=== PATIENT | male | born 1990 | race African-American/Black ===

== ENCOUNTER 2021-04-12 18:45 | Emergency (ER) | payer OTHER, SELFPAY ==
--- NOTE | ~2021-04-12 | CT_ITS ---
EXAMINATION: CT abdomen pelvis w con EXAM DATE: 04/12/2021 23:29 INDICATION: Right lower quadrant abdominal pain. TECHNIQUE: Spiral CT of the abdomen and pelvis was performed following intravenous injection of 100 m L Omnipaque 350. Axial, coronal and sagittal images of the abdomen and pelvis were reviewed. The do se-length product (DLP) for this examination was 777.28 mGy-cm. The exposure was tailored according to patient size (auto mA exposure control), and iterative reconstruction (ASIR) was used as additiona l dose reduction technique. There is no prior study for comparison. FINDINGS: The liver, spleen, adrenal glands and pancreas are unremarkable. Gallbladder is unremarkab le. No biliary obstruction. Portal and splenic veins are patent. Kidneys enhance symmetrically. T here is no hydronephrosis. The prostate is unremarkable. The bladder is unremarkable. There is no retroperitoneal or pelvic lymphadenopathy. The appendix is normal. The stomach and small bowel are unremarkable. There is expected amount of c olonic stool. No free intraperitoneal gas. The heart is normal in size. There are no pericardial or pleural effusions. The lung bases are unremarkable. There are no osteoblastic or osteolytic les ions identified. IMPRESSION: No acute intra-abdominal findings. Reviewed, dictated and finalized at location A. [employer]
[2021-04-12 18:51] VITALS: BP 133/79; PULSE 77; RESP 16; TEMP 36.1; O2SAT 99
[2021-04-12] MEDS: ONDANSETRON INJ 4 MG/2 ML VIAL IV PUSH (21:55)
[2021-04-12] MEDS: SODIUM CHLORIDE 0.9% IV 1,000 ML 999 ML IV CONT (21:55)
[2021-04-12 22:00] LABS: Basophils Absolute Auto 0.1 K/mm3 (0.0-0.1); Basophils Percent Auto 0.5 % (0.2-1.2); Eosinophils Absolute Auto 0.1 K/mm3 (0-0.3); Eosinophils Percent Auto 1.5 % (0-4.4); Hematocrit 42.6 % (42.0-52.0); Hemoglobin 14.3 g/dL (14.0-18.0); Immature Granulocyte Absolute 0.02 K/mm3 (0.00-0.031); Immature Granulocyte Percent A 0.2 % (0-0.5); Lymphocytes Absolute Auto 3.22 K/mm3 (0.9-3.2); Lymphocytes Percent Auto 34.3 % (18.3-44.2); Mean Corpuscular HGB Conc 33.6 g/dl (32-36); Mean Corpuscular Hemoglobin 28.5 pg (26-34); Mean Platelet Volume 10.3 fl (7.4-10.4); Monocytes Absolute Auto 0.7 K/mm3 (0.1-0.6); Monocytes Percent Auto 7.4 % (2.6-8.5); Neutrophils Absolute Auto 5.3 K/mm3 (1.3-6.7); Neutrophils Percent Auto 56.1 % (45.5-73.1); Platelet Count Result 252 k/mm3 (150-375); Red Blood Count 5.01 M/mm3 (4.6-6.20); White Blood Count 9.4 K/mm3 (4.5-10.0)
--- NOTE | 2021-04-12 22:05 | ED.WEAKNESS ---
HPI - Weakness General Chief complaint: Weakness Stated complaint: Stomach bothering, feeling weak Time Seen by Provider: 04/12/21 21:14 Source: patient and RN notes reviewed Mode of arrival: ambulatory Limitations: no limitations History of Present Illness HPI Narrative: This is a 30 year old male who presents for evaluation of weakness. Patient states he has felt weak and tired for 2 days. He has been sleeping alot for 2 days and he does not have an appetite. He denies abdominal pain but reports nausea and his stomach feels off. His girlfriend was coming to ER for evaluation of abdominal pain and fever so he came too. He denies fever, chills, vomiting, diarrhea, sore throat, runny nose, cough, chest pain, back pain. He also denies penile discharge, dysuria, testicular pain or swelling. He has been vaccinated for covid. Related Data Allergies Allergy/AdvReac Type Severity Reaction Status Date / Time No Known Allergies Allergy Verified 04/12/21 21:54 Review of Systems Review of Systems: All systems reviewed & are unremarkable except as noted in HPI and below Constitutional: Constitutional: Denies chills, Reports fatigue, Reports fever(s) and Reports weakness Eyes: Eyes: Denies change in vision ENT: Denies sore throat Cardiovascular: Cardiovascular: Denies chest pain Respiratory: Respiratory: Denies cough and Denies dyspnea Gastrointestinal: Gastrointestinal: Denies diarrhea, Reports nausea and Denies vomiting Genitourinary: Genitourinary: Denies hematuria, Denies oliguria and Denies penile discharge Musculoskeletal: Musculoskeletal: Denies back pain and Reports arthralgias [facility] Past Medical History Medical History (Updated 04/13/21 @ 00:01 by Myriam Garvey MD) Patient denies medical problems Surgical History Surgical History (Updated 04/12/21 @ 22:10 by Myriam Garvey MD) No pertinent past surgical history Social History Social History (Updated 04/12/21 @ 22:10 by Myriam Garvey MD) Smoking status: Never smoker Alcohol intake: current Exam Const: General: no acute distress and alert Orientation/consciousness: patient oriented x3 HENMT: Head: normocephalic and atraumatic Ears: TM's normal bilaterally General nose exam: Normal external nose present and Normal nares present Face and sinus: normal facial exam, sinuses nontender and face symmetric Mouth: Yes Normal oral and palatal mucosa present, Yes lip normal, Yes oropharynx normal and Yes moist mucous membranes Throat: posterior oropharynx normal, tonsils normal and uvula midline Eyes: EOM: EOMs intact bilaterally Resp: Effort & Inspection: normal respiratory effort and no retractions Auscultation: clear to auscultation bilaterally Cardio: Rate: regular rate Rhythm: regular rhythm Heart sounds: no murmurs GI: GI Palp: Yes Soft to palpation, Yes Tenderness to palpation present (GI) (RLQ), No Guarding due to palpation present (GI) and No Rigid due to palpation Auscultation: normal bowel sounds Back/Spine/Pelvis: Back: no CVA tenderness Skin: General skin exam: normal color Rashes: no rashes Neuro: General: patient oriented x3, moves all extremities and CN's II-XI intact bilaterally Psych: Mental Status: mental status grossly normal Affect: normal affect Course Reevaluation(s) Reevaluation #1: PAtient had right lower abdominal pain on exam so CT performed to rule out appendicitis. CT is negative so patient will be discharged. Date: 04/12/21 Time: 23:59 Vital Signs Vital signs: Vital Signs Temperature 97.0 F L 04/12/21 18:51 Pulse Rate 77 04/12/21 18:51 Respiratory Rate 16 04/12/21 18:51 Blood Pressure 133/79 04/12/21 18:51 Pulse Oximetry 99 04/12/21 18:51 Temperature 97.0 F L 04/12/21 18:51 Pulse Rate 78 04/13/21 00:31 Respiratory Rate 15 04/13/21 00:31 Blood Pressure 122/76 04/13/21 00:31 Pulse Oximetry 100 04/13/21 00:31 MDM - Weakness Lab Data A
[2021-04-12 22:06] LABS: Add Urine Microscopic? YES; Appearance Urine Cloudy (Clear); Bilirubin Urine Negative (Negative); Blood Urine Negative (Negative); Color Urine Yellow (Yellow); Glucose Urine UA Negative (Negative); Ketones Urine Negative (Negative); Leukocyte Esterase Ur Trace LEU/UL (Negative); Mucus Urine Few /lpf; Nitrate Urine Negative (Negative); Protein Urine 1+ mg/dL (Negative); Specific Grav Ur 1.023 (1.001-1.035); WBC Urine 0-3 /hpf
[2021-04-12 22:44] LABS: Alanine Aminotransferase 35 U/L (4-50); Albumin Level 4.5 g/dL (3.5-5.1); Alkaline Phosphatase 63 U/L (38-126); Anion Gap 10 mmol/L (8-16); Aspartate Amino Transferase 35 U/L (17-59); Bilirubin,Total 0.5 mg/dL (0.2-1.3); Blood Urea Nitrogen 9 mg/dL (9-20); Calcium 8.9 mg/dL (8.4-10.2); Carbon Dioxide 25 mmol/L (22-30); Chloride 105 mmol/L (98-107); Estimated CRCL calculation 99 ml/min; Estimated Glomerular Filt Rate > 60; Glucose 95 mg/dL (65-110); Lipase 94 U/L (23-300); Potassium 4.1 mmol/L (3.4-5.0); Sodium 140 mmol/L (137-145)
[2021-04-13] MEDS: MAG HYDROX/AL HYDROX/SIMETH 30 ML UDC PO (00:27)
[2021-04-13] MEDS: Please add drug allergy info to patient profile. 1 EACH XX (00:28)
[2021-04-13 00:31] VITALS: BP 122/76; PULSE 78; RESP 15; O2SAT 100
== END 2021-04-13 00:33 | disposition home or self-care (01) ==
PROVIDERS: Emergency Provider General Practice
DX: R10.31 Right lower quadrant pain (principal)
CPT/HCPCS: 36415; 74177; 80053; 81001; 83690; 85025; 96361; 96374; 96375; 99284; A9270; J2405; J7030; Q9967